=== PATIENT | female | born 1955 | race Two or more races ===

== ENCOUNTER 2017-11-17 09:24 | Outpatient (CLI) | payer OTHER | END 2017-11-17 09:26 | disposition home or self-care (01) | LOC: NUCLEAR 09:24 | DX: I34.0 Nonrheumatic mitral (valve) insufficiency (principal) ==

== ENCOUNTER 2018-07-07 11:04 | Outpatient (CLI) | payer OTHER | END 2018-07-07 11:16 | disposition home or self-care (01) | LOC: NUCLEAR 11:04 | DX: M85.89 Other specified disorders of bone density and structure, multiple sites (principal) ==

== ENCOUNTER 2018-07-07 13:03 | Outpatient (CLI) | payer OTHER | END 2018-07-07 13:11 | disposition home or self-care (01) | LOC: SONOGRAMA 13:03 → MAMO-SONO 13:15 | DX: E04.1 Nontoxic single thyroid nodule (principal); R10.84 Generalized abdominal pain ==

== ENCOUNTER 2021-10-30 11:15 | Outpatient (CLI) | payer OTHER | END 2021-10-30 11:25 | disposition home or self-care (01) | LOC: RAD 11:15 | PROVIDERS: ATTEND Ophthalmology | DX: Z01.810 Encounter for preprocedural cardiovascular examination (principal); Z20.828 Contact with and (suspected) exposure to other viral communicable diseases ==

== ENCOUNTER 2021-10-31 09:16 | Outpatient (CLI) | payer OTHER | END 2021-10-31 15:00 | disposition home or self-care (01) | LOC: MAMO-SONO 09:16 | PROVIDERS: ATTEND Internal Medicine Sports Medicine | DX: C50.919 Malignant neoplasm of unspecified site of unspecified female breast (principal) ==

== ENCOUNTER 2022-10-16 14:52 | Outpatient (CLI) | payer OTHER | END 2022-10-16 15:05 | disposition home or self-care (01) | LOC: RAD 14:52 | DX: R05.3 Chronic cough (principal) ==

== ENCOUNTER 2023-02-06 09:02 | Outpatient (CLI) | payer OTHER | END 2023-02-06 09:11 | disposition home or self-care (01) | LOC: NUCLEAR 09:02 | PROVIDERS: ATTEND Specialist | DX: R00.1 Bradycardia, unspecified (principal); R00.2 Palpitations ==

== ENCOUNTER → 2023-02-09 | Outpatient (CLI) | payer OTHER | END | disposition home or self-care (01) | LOC: MAMO-SONO 10:02 | PROVIDERS: ATTEND Specialist | DX: Z12.31 Encounter for screening mammogram for malignant neoplasm of breast (principal); N64.9 Disorder of breast, unspecified ==

== ENCOUNTER 2023-10-29 14:36 | Outpatient (CLI) | payer OTHER | END 2023-10-29 14:42 | disposition home or self-care (01) | LOC: RAD 14:36 | PROVIDERS: ATTEND Specialist | DX: M25.561 Pain in right knee (principal) ==

== ENCOUNTER 2024-06-21 09:56 | Outpatient (CLI) | payer OTHER | END 2024-06-21 10:09 | disposition home or self-care (01) | LOC: MAMO-SONO 09:56 | DX: C50.919 Malignant neoplasm of unspecified site of unspecified female breast (principal) ==

== ENCOUNTER 2024-12-06 10:11 | Outpatient (CLI) | payer OTHER | END 2024-12-06 10:12 | disposition home or self-care (01) | LOC: SONOGRAMA 10:11 | PROVIDERS: ATTEND Specialist | DX: E03.8 Other specified hypothyroidism (principal) ==